=== PATIENT | female | born 1940 | race Caucasian/White ===

== ENCOUNTER 2017-10-03 07:30 | Day surgery (SDC) | payer OTHER ==
[2017-10-03] MEDS ORDERED: BSS WITH EPINEPHRINE OP ONE ×2 (07:50→08:20)
[2017-10-03] MEDS: TETRACAINE 0.5% UNIT-DOSE OP PRN ×2 (07:51→08:56)
[2017-10-03] MEDS: BETADINE OPTH PREP OP PRN ×2 (07:52→08:56)
[2017-10-03] MEDS: CYCLOGYL 2% OPTH OP PRN ×3 (07:53→08:03)
[2017-10-03] MEDS ORDERED: BRIMONIDINE TARTRATE 0.2% OPTH SOL OP PRN ×2 (08:20→15:20)
[2017-10-03] MEDS ORDERED: DEX-MOXI-KETOR OPTH INJ 1/0.5/0.4 MG/ML IO ONE ×2 (08:20→15:20)
[2017-10-03] MEDS ORDERED: ZOFRAN 4 MG/2 ML IVP ONE ×2 (08:20→15:20)
[2017-10-03] MEDS ORDERED: NIRAVAM ODT (SURGERY) PO PRN ×2 (08:20→15:20)
[2017-10-03] MEDS ORDERED: AK-DILATE 10% OPTH SOL OP PRN ×2 (08:20→15:20)
[2017-10-03] MEDS ORDERED: DIPRIVAN 20 ML VIAL IVP ONE (09:05)
[2017-10-03] MEDS ORDERED: VERSED ONE (09:05)
[2017-10-03] MEDS ORDERED: BETADINE OPTH PREP OP PRN (15:20)
[2017-10-03] MEDS ORDERED: LIDOCAINE 1% 20 ML MDV ID STA (15:20)
[2017-10-03] MEDS ORDERED: TETRACAINE 0.5% UNIT-DOSE OP PRN (15:20)
[2017-10-03] MEDS ORDERED: CYCLOGYL 2% OPTH OP PRN (15:20)
[2017-10-03] MEDS ORDERED: LIDOCAINE 1%/PHENYLEPHRINE 1.5% BSS (SURGERY) INTRAOCULA ONE (16:05)
[2017-10-03 16:22] VITALS: BP 146/76; TEMP 97.5
== END 2017-10-03 10:00 | disposition home or self-care (01) ==
LOC: SURG 07:30
PROVIDERS: ATTEND Ophthalmology
DX: H25.812 Combined forms of age-related cataract, left eye (principal); H52.202 Unspecified astigmatism, left eye